=== PATIENT | female | born 1955 | race Caucasian/White ===

== ENCOUNTER 2021-02-11 13:14 | Outpatient (CLI) | payer MEDICARE, SELFPAY ==
[2021-02-11 13:03] LABS: CREATININE 0.9 mg/dL (0.55-1.02)
== END 2021-02-11 13:15 | disposition home or self-care (01) ==
LOC: LBO 13:16
PROVIDERS: PCP Family Medicine; Visit Provider Otolaryngology
DX: M54.2 Cervicalgia (principal); Z01.818 Encounter for other preprocedural examination
CPT/HCPCS: 36415; 82565

== ENCOUNTER 2021-02-20 01:15 | Outpatient (CLI) | payer MEDICARE, SELFPAY ==
--- NOTE | 2021-02-20 07:00 | DI.CT_ITS ---
Exam(s) CT NECK W EXAM: CT NECK W CLINICAL HISTORY: left cervicalgia without response to PT since 4.2. TECHNIQUE: Imaging Protocol: Axial CT angiography was performed with multi-slice acquisition and mu lti-planar and/or 3D reconstructions. CONTRAST MATERIAL: Intravenous: Omnipaque 350 Contrast volume:100cc COMPARISON: No exams were available for comparison FINDINGS: Visualized paranasal sinuses: Maxillary sinuses and sphenoid sinuses are clear as are the ethmoidal a ir cells. Both ostiomeatal units are patent. Both middle turbinates are aerated. Nasal septum is m idline and without evidence of significant nasal septal spur. No obstruction of the nasal passages. Mastoid air cells are also well aerated. The frontal sinuses are only partially included in the fie ld of view of this neck study and appear well aerated. . Nasopharynx: Tissues nasopharynx are symmetrical. No mass. Oropharynx: The uvula is midline. No obvious mass. Hypopharynx: Free edge of the epiglottis and valleculae appear unremarkable. Aryepiglottic folds unr emarkable. Vocal cords: No obvious masses at this level nor in the subglottic airway. Thyroid gland: Normal size. No obvious nodules. Salivary glands: Parotid and submandibular glands appear unremarkable. No masses nor calculi. Lymph nodes: There is no significant lymphadenopathy in the neck and supraclavicular regions. Vascular: There is both calcified and noncalcified plaque at both carotid bifurcations and proximal i nternal carotid arteries. There does not appear to be a critical stenosis at these levels. Both internal jugular veins are patent. Osseous: There is slight reversal of the normal cervical curvature. There are no fractures in the ce rvical vertebrae. Mild degenerative anterolisthesis of C4 upon C5 appears to be related to facet art hropathy, this most evident on the left side at C4-5 level. No significant osseous lesions. There a re no prominent anterior osteophytes and no prevertebral soft tissue swelling. There is advanced disc space narrowing at C3-4 and C5-6 levels. Small bilateral Luschka joint osteop hytes at evident at both of these levels. There is moderate disc space narrowing at C 4-5 and C6-7 l evels. No prominent disc herniations, realized limitations of CT scan for detecting disc herniations in the cervical spine (when compared to MRI). There is no evidence of prominent spinal canal stenosis. IMPRESSION: 1. No significant soft tissue findings in the neck. No lymphadenopathy. 2. Cervical spine findings as described above. There is multilevel degenerative disc disease. No ob vious large disc herniations, realizing the limitations CT scan when compared to MRI for determining disc herniations in the cervical spine region. Nevertheless, there do not appear to be large disc he rniations nor prominent central canal stenosis. However, there is some reversal of the normal curvat ure of the cervical spine evident, this probably related to muscle spasm. RADIATION DOSE DELIVERED: 356.77mGy.cm Total DLP DATA REPOSITORY: All CT scans at this facility are submitted to the National Radiology Data Registry (NRDR) Dose Index Registry (DIR) with the [employer] ([employer]). RADIATION OPTIMIZATION: All CT scans at this facility use at least one of these dose optimization te chniques: automated exposure control; mA and/or kV adjustment per patient size (includes targeted exa ms where dose is matched to clinical indication); or iterative reconstruction.
[2021-02-20] MEDS: Normal Saline - Diluent 50 ML VIAL IV (10:11)
[2021-02-20] MEDS: Omnipaque 350 MG/ML 100 ML BTL IV (10:11)
== END 2021-02-20 01:35 ==
PROVIDERS: PCP Family Medicine; Visit Provider Otolaryngology
DX: M50.321 Other cervical disc degeneration at C4-C5 level (principal)
CPT/HCPCS: 70491; J3490